=== PATIENT | female | born 1990 | race African-American/Black ===

== ENCOUNTER 2017-05-19 09:52 | Day surgery (SDC) | payer OTHER ==
[2017-05-19 11:02] VITALS: BMI 30.7
[2017-05-19] MEDS ORDERED: Lactated Ringer's 1,000 ML IV SCH (11:15)
[2017-05-19] MEDS ORDERED: Promethazine HCl 25 MG/ML VIAL IM/IV PRN (11:57)
[2017-05-19] MEDS ORDERED: Betamet Acet/Betamet Na Ph 30 MG/5 ML VIAL IM SCH (12:00)
[2017-05-19 12:05] LABS: Hematocrit 26.2 % (36.0-47.0); Mean Platelet Volume 9.3 fL (7.4-10.4); Red Blood Cell (RBC) Count 3.62 mill/uL (4.20-5.40)
[2017-05-19 12:13] LABS: Anion Gap 11 mmol/L (10-20); BUN (Urea Nitrogen) Less than 4 mg/dL (7.0-18.7); Bilirubin, Total 0.3 mg/dL (0.2-1.2); Calc. Creatinine Clearance 223 mL/min (70-130); Calcium 8.5 mg/dL (7.8-10.44); Carbon Dioxide 21 mmol/L (22-29); Chloride 108 mmol/L (98-107); Estimated GFR-MDRD Greater than 90; Globulin 3.4 g/dL (2.4-3.5); Protein, Total 6.3 g/dL (6.0-8.3)
[2017-05-19 12:14] LABS: ALT (SGPT) 9 U/L (8-55); AST (SGOT) 13 U/L (5-34); Alkaline Phosphatase 130 U/L (40-150)
--- NOTE | 2017-05-19 12:19 | PRG ---
DATE OF SERVICE: 05/19/2017 TIME: 1202 EGA ESTIMATION Once again, we have used an EDC of 07/12/2016 based on first trimester ultrasound per Dr. Hodge. at puts her now at 32 weeks and 2 days. As she has a known previa, we will administer Celestone and monitor for now. There is no evidence of vaginal bleeding currently. Her transvaginal ultrasound was normal with a cervical length of 5 cm. Therefore, there is no evidence of labor at this time. Dr. Hodge has asked us to assume care as he is unavailable for patient management today. Th is was by personal communication with him.
[2017-05-19 12:23] LABS: #Eosinphils 0.1 thou/uL (0.0-0.7); #Lymphocytes 1.8 thou/uL (1.20-3.40); #Monocytes 0.7 thou/uL (0.11-0.59); #Neutrophils 5.4 thou/uL (1.40-6.50); %Basophils 0.2 % (0.0-1.0); %Eosinophils 1.3 % (0.0-10.0); %Lymphocytes 22.8 % (21.0-51.0); %Monocytes 8.4 % (0.0-10.0); Hypochromia SLIGHT = 6-15 cells (100X) (0-5/hpf); Microcytosis MODERATE=15-30 cells (100X) (0-5/hpf); Polychromasia SLIGHT = 2-3 cells (100X) (0-2/hpf)
--- NOTE | 2017-05-19 12:28 | HP ---
DATE: 05/19/2017 TIME OF EVALUATION: 1120 LOCATION: Labor and Delivery, LDR 6 This is a patient of Dr. Hodge, who has requested that we assumed care for this patient per direct communication. PATIENT HAS FULL H&P HANDWRITTEN IN CHART. REASON FOR EVALUATION: Suspected vaginal bleeding episodes, status post coitus with a partial previa by history. HISTORY OF PRESENT ILLNESS: In brief, this is a 26-year-old -[place] with 1 prior miscarriage with no prior history, who is at 32 weeks and 1 day by EDC of 07/12/2016, which was by 14-[address] Hodge. This was also seen in the record. She states that she was given an ultrasound about 2 weeks ago which showed a possible previa. She had intercourse at approximately midnight this morning and vaginal bleeding occurred at 0700. She denies leakage of fluid or regular contractions. She denies fevers or any abdominal trauma. REVIEW OF SYSTEMS: Complete review of systems was checked and is significant only for the vaginal bleeding after intercourse. This patient was transferred from the [facility] earlier, when I attempt to call at about 9:30 from the transfer center. The patient has now arrived in triage. ALLERGIES: None. PAST SURGICAL HISTORY: None. OB HISTORY: Significant for vaginal deliveries. PHYSICAL EXAMINATION: VITAL SIGNS: Blood pressure is 104/61, pulse is 81 and she is afebrile with a temperature of 98.5. GENERAL: Clinically, she is in no acute distress. ABDOMEN: Size is equal to dates. Ultrasound was in the room during my history taking. Ultrasound revealed size equal to dates, but the EFW was still pending as the machine had been turned off prior to generation of the report. There is a posterior placenta previa which is noted. Again, Ultrasound in the room during my history taking. In brief, the ultrasound did confirm size equal to dates, cephalic presentation, normal amniotic fluid. There is a partial previa which is posterior. Cervical length was 5 cm. Next on monitor, heart tones are in the 140s to 150s with moderate variability. There are accelerations at initial evaluation. Contractions were few and there was more uterine irritability than true contraction pattern. ASSESSMENT: This is a patient at 32 weeks and 1 day with known previa with a post coital vaginal bleed. PLAN: 1. Observation in Labor and Delivery. 2. IV hydration. 3. Celestone for lung maturation. 4. No evidence of acute bleed now. 5. RhoGAM if Rh negative. 6. Observation for now. 7. Regular diet allowed. MTDD
[2017-05-19] MEDS ORDERED: FLU VACC QS2017-18 36 mo. & older 0.5 ML SYRINGE IM ONE (14:00)
--- NOTE | 2017-05-19 14:09 | DIS ---
In brief, this is a patient that we have been watching since this morning, who was transferred here for evaluation, from the [place] [facility]. In brief, this is a patient who had an episode of vaginal bleeding, but is otherwise stable. There is no evidence of labor as her cervical length is normal. The patient has requested a stron g desire to go home due to registered nurse maternal child issues. Although we have requested that she stay for 23-hour observation, that is not possible due to registered nurse maternal child at home. I discussed with her that as she is no t actively bleeding, with a normal cervical length, and reassuring heart tones, she can be dis charged home after this current bag of fluid. She is to come back tomorrow for steroid #2 administr ation and she was also told to avoid intercourse. We will send the patient home at her request, siria velasquez we have recommended that she stay. Risks and benefits discussed with the patient.
--- NOTE | 2017-05-19 17:01 | ULT ---
OB ULTRASOUND: 05/19/2017 HISTORY: Bleeding after intercourse. Evaluate cervical length and placental location due to bleeding. COMPARISON: 05/03/2017 FINDINGS: Again noted is a single intrauterine gestation, in cephalic presentation. Cardiac Doppler demonstra salvador heart tones with a heart rate of 126 BPM. The placenta is located posteriorly, and the leading edge of the placenta extends to the level of the cervix and has the appearance most sugg estive of a partial placental previa. The cervical length is 5.3 cm. There is a normal amount of amniotic fluid with an amniotic fluid index of 14.l5 cm. measurements: Biparietal diameter 7.34 cm (29 weeks and 3 days). Head circumference: 28.18 cm (30 weeks and 6 day). Abdominal circumference: 25.93 cm (30 weeks and 1 day). Femur length: 5.94 cm (31 weeks). ESTIMATED GESTATIONAL AGE BY ULTRASOUND: 30 weeks and 3 days. ESTIMATED DATE OF DELIVERY: 07/25/2017 This does correlate with a gestational age by the last menstrual period of 30 weeks and 5 days. The estimated weight by ultrasound is 1565 g (3 lbs 7 oz). This represents the 27th percentil e for weight. There has been interval growth when compared to prior exam. IMPRESSION: 1. Partial placenta previa. 2. Single intrauterine gestation, in cephalic presentation, with heart tones documented. 3. Amniotic fluid index measures 14.7 cm. 4. Estimated gestational age by ultrasound is 30 weeks and 3 days with an estimated date of deliver y of 07/25/2017. 5. Estimated weight 1565 g (3 lbs [address] oz). Dr. Mitchell was present during this examination and is aware of partial placenta previa. POS: [facility]
== END 2017-05-19 15:15 | disposition home or self-care (01) ==
LOC: ERS 09:52 → EDSTATUS 10:04 → L&D/OP 10:06
PROVIDERS: ATTEND Obstetrics & Gynecology
DX: O46.93 Antepartum hemorrhage, unspecified, third trimester (principal); Z3A.32 32 weeks gestation of pregnancy; Z79.899 Other long term (current) drug therapy; Z87.891 Personal history of nicotine dependence
CPT/HCPCS: 36415; 76805; 86780; 87389; 96360; 96361; 96372; J0702

== ENCOUNTER 2017-05-20 12:40 | Day surgery (SDC) | payer OTHER ==
[2017-05-20 13:04] VITALS: BP 111/63; TEMP 98.6; BMI 30.7
[2017-05-20] MEDS ORDERED: FLU VACC QS2017-18 36 mo. & older 0.5 ML SYRINGE IM ONE (13:15)
[2017-05-20] MEDS ORDERED: Betamet Acet/Betamet Na Ph 30 MG/5 ML VIAL IM SCH (13:45)
--- NOTE | 2017-05-21 08:50 | PRG ---
DATE OF SERVICE: 05/20/2017 CHIEF COMPLAINT: Dose #2 of Celestone. HISTORY OF PRESENT ILLNESS: At the time of presentation, Ms. Balbuena is a 26-year-old 4, par a [address] Hodge for care. She has a known posterior previa. She is presenti for dose #2 of her betamethasone, dose #1 having been given yesterday. The patient denies any cr amping or vaginal bleeding. She reports good movement. REVIEW OF SYSTEMS: Limited review of systems per HPI. HISTORY: Please see labor and delivery admission record included by reference. PHYSICAL EXAMINATION: VITAL SIGNS: Blood pressure 111/63, pulse 85, respiratory rate 18, and temperature 98.6. GENERAL: Nontoxic appearing female in no acute distress. OBSTETRIC: heart tracing is category 1 and tocodynamometer is quiet. ASSESSMENT AND PLAN: 1. A 32-week 3-day intrauterine with category 1 tracing. 2. Known posterior placenta previa presenting for dose #2 of betamethasone. Betamethasone was admi nistered. The patient was discharged to home with routine obstetric and bleeding precautions and en couraged to keep her next scheduled appointment with Dr. Fredo Hodge.
== END 2017-05-20 13:45 | disposition home or self-care (01) ==
LOC: L&D/OP 12:40
PROVIDERS: ATTEND Obstetrics & Gynecology
DX: O44.03 Complete placenta previa NOS or without hemorrhage, third trimester (principal); Z79.899 Other long term (current) drug therapy; Z3A.33 33 weeks gestation of pregnancy; Z87.891 Personal history of nicotine dependence
CPT/HCPCS: 59025; 96372

== ENCOUNTER 2020-04-24 10:37 | Outpatient (CLI) | payer OTHER ==
[2020-04-25 14:55] LABS: SARS-CoV-2 MS2 Positive; SARS-CoV-2 N Gene Negative; SARS-CoV-2 S Gene Negative; SARS-CoV-2 by NAA Not Detected (NotDetected); SARS-CoV-2 orf1ab Negative
== END 2020-04-24 10:38 | disposition home or self-care (01) ==
LOC: LABBT 10:37
PROVIDERS: ATTEND Family Medicine
DX: Z20.828 Contact with and (suspected) exposure to other viral communicable diseases (principal)
CPT/HCPCS: 87635; U0003